=== PATIENT | female | born 1980 | race Two or more races ===

== ENCOUNTER 2021-04-18 18:16 | Inpatient (IN) | payer OTHER ==
[~2021-04-18] VITALS: Ht 154.9 cm; Wt 98.0 kg
[2021-04-18] MEDS ORDERED: IV NS 0.9% 1,000 ML BAG IV ONE (19:00)
[2021-04-18] MEDS ORDERED: INSULIN REGULAR, HUMAN 100 UNIT/ML 10 ML VIAL SQ ONE (19:00)
--- NOTE | 2021-04-18 19:05 | NUR ---
PT ROGELIO FOR MEDICAL CLEARANCE TO BOOK. PT AAOX4 BREATHING EVENLY AND UNLABORED. PT ATTACHED TO MONITOR AND POX. PER PT, SHE HAS RT EYE RETINAL DETACHMENT. PT ATTACHED TO MONITOR AND POX. PT GIVEN BLANKET AND CALL LIGHT WITHIN REACH
[2021-04-18] MEDS ORDERED: INSULIN REGULAR, HUMAN 100 UNIT/ML 10 ML VIAL ONE (19:12)
[2021-04-18 19:13] LABS: BASOPHILS # (AUTO) 0.1 /CMM (0.0-0.2); BASOPHILS % (AUTO) 0.7 % (0.0-2.0); HEMATOCRIT 34 % (33-45); HEMOGLOBIN 11.1 g/dL (11.5-14.8); LYMPHOCYTES # (AUTO) 1.7 /CMM (0.8-4.8); MEAN CORPUSCULAR HGB CONC 33 g/dl (31.0-36.0); MEAN CORPUSCULAR VOLUME 88 fL (82-100); MONOCYTES # (AUTO) 0.3 /CMM (0.1-1.30); MONOCYTES % (AUTO) 3.4 % (2.0-12.0); NEUTROPHILS # (AUTO) 6.9 /CMM (1.8-8.9); NEUTROPHILS % (AUTO) 75.9 % (43.0-81.0); PLATELET COUNT (AUTO) 200 /CMM (150-450); RED BLOOD CELL COUNT(AUTO) 3.87 MIL/uL (4.0-5.2); WHITE BLOOD COUNT (AUTO) 9.1 K/uL (4.3-11.0)
[2021-04-18 19:21] LABS: CALCIUM, SERUM 9.2 mg/dL (8.5-10.1); CREATININE 2.6 mg/dL (0.6-1.3); POTASSIUM 5.7 mmol/L (3.5-5.1)
[2021-04-18] MEDS ORDERED: IV NS 0.9% 1,000 ML IV ONE (19:30)
--- NOTE | 2021-04-18 20:57 | NUR ---
CALLED LAB FOR REPEAT BLOOD DRAW
--- NOTE | 2021-04-18 21:03 | NUR ---
LAB AT BEDSIDE
--- NOTE | 2021-04-18 21:35 | NUR ---
called lab to f/u
[2021-04-18 21:44] LABS: CALCIUM, SERUM 8.3 mg/dL (8.5-10.1); CREATININE 2.4 mg/dL (0.6-1.3); POTASSIUM 5.6 mmol/L (3.5-5.1)
--- NOTE | 2021-04-18 22:11 | NUR ---
COVID SWAB COLLECTED AND SENT
[2021-04-18] MEDS ORDERED: SIMV10TA2 PO (22:21)
[2021-04-18] MEDS ORDERED: ATEN25TA PO (22:22)
[2021-04-18] MEDS ORDERED: ALLO100T PO (22:23)
[2021-04-18] MEDS ORDERED: GABA300C PO (22:24)
[2021-04-18] MEDS ORDERED: CLON0.1T PO (22:26)
[2021-04-18] MEDS ORDERED: OMEP20CA15 PO (22:26)
[2021-04-18] MEDS ORDERED: AMLO-213 PO (22:27)
[2021-04-18] MEDS ORDERED: DULO20CA PO (22:28)
[2021-04-18] MEDS ORDERED: FURO40TA5 PO (22:29)
[2021-04-18] MEDS ORDERED: LISI20TA30 PO (22:30)
[2021-04-18] MEDS ORDERED: HUM10VIA SQ (22:30)
--- NOTE | 2021-04-18 22:33 | NUR ---
PAGED PANEL PER DR'S ORDER
--- NOTE | 2021-04-18 22:44 | NUR ---
DR VENTURA ON THE PHONE WITH DR MCKENZIE
[2021-04-18] MEDS ORDERED: HYDROCODONE/APAP 5/325MG TABLET PO PRN (23:00)
[2021-04-18] MEDS ORDERED: ACETAMINOPHEN 325 MG TABLET PO PRN (23:00)
[2021-04-18] MEDS ORDERED: MAG HYDROX/AL HYDROX/SIMETH 30 ML UDC PO PRN (23:00)
[2021-04-18] MEDS ORDERED: Z GUARD REMEDY 2 OZ OINT TP PRN (23:00)
[2021-04-18] MEDS ORDERED: ZOLPIDEM TARTRATE 5 MG TABLET PO PRN (23:00)
[2021-04-18] MEDS ORDERED: DEXTROSE 50%-WATER 50 ML DISP.SYRIN IV PRN (23:00)
[2021-04-18] MEDS ORDERED: MAGNESIUM HYDROXIDE 30 ML UDC PO PRN (23:00)
[2021-04-18] MEDS ORDERED: INSULIN NPH/REG 70/30 MIX INJ 100 UNIT/ML VIAL SQ SCH (23:00)
[2021-04-18] MEDS ORDERED: ONDANSETRON HCL/PF 4 MG/2 ML VIAL IVP PRN (23:00)
--- NOTE | 2021-04-18 23:02 | NUR ---
TELE BED: 314-7
--- NOTE | 2021-04-18 23:14 | NUR ---
gave report to ELVIRA Leo for brenda
[2021-04-18 23:45] VITALS: BP 156/63
--- NOTE | 2021-04-19 00:45 | NUR ---
HISTORY INSTRUCTORMILL TENDER WARM UP NOTES: ADMIT PATIENT TO FLOOR VIA GURNEY ACCOMPANIED BY POLICE, PLACE IN BED COMFORTABLY, NO COMPLAIN OF PAIN AND DISCOMFORT, REORIENT TO PLACE AND CALL LIGHTS, REMIND TO USE THE CALL LIGHTS WHEN NEEDED ASSISTANCE, SKIN ASSESSMENT DONE, INVENTORY LIST DONE AND SIGN, PATIENT HAS LEFT BREAST MASTECTOMY, PATIENT ON TELE MONITORING WITH READING OF NORMAL SINUS RTHYM HR-82, ON RA NO SOB OBSERVED, WITH RA IV LINE #20 ON 0.9NSS @125ML/HR INFUSING WELL, NPO EXCEPT MEDICATIONS, AMBULATE IWTH SUPERVISION TO RESTROOM, PATIENT KEPT CLEAN AND DRY, WILL CONTINUE TO MONITOR.
[2021-04-19] MEDS: IV NS 0.9% 1,000 ML IV SCH ×3 (00:56→15:10)
[2021-04-19] MEDS: INSULIN REGULAR, HUMAN 100 UNIT/ML 3 ML VIAL SQ PRN ×4 (01:32→17:07)
[2021-04-19 03:47] LABS: BASOPHILS # (AUTO) 0.1 /CMM (0.0-0.2); BASOPHILS % (AUTO) 0.7 % (0.0-2.0); EOSINOPHILS % (AUTO) 1.6 % (0.0-6.0); HEMATOCRIT 31 % (33-45); HEMOGLOBIN 10.4 g/dL (11.5-14.8); LYMPHOCYTES # (AUTO) 2.2 /CMM (0.8-4.8); LYMPHOCYTES % (AUTO) 30.4 % (20.0-44.0); MEAN CORPUSCULAR HGB CONC 33 g/dl (31.0-36.0); MEAN CORPUSCULAR VOLUME 88 fL (82-100); MONOCYTES # (AUTO) 0.3 /CMM (0.1-1.30); MONOCYTES % (AUTO) 4.5 % (2.0-12.0); NEUTROPHILS # (AUTO) 4.5 /CMM (1.8-8.9); NEUTROPHILS % (AUTO) 62.8 % (43.0-81.0); PLATELET COUNT (AUTO) 184 /CMM (150-450); RED BLOOD CELL COUNT(AUTO) 3.58 MIL/uL (4.0-5.2); WHITE BLOOD COUNT (AUTO) 7.2 K/uL (4.3-11.0)
[2021-04-19 04:11] LABS: CHOLESTEROL 196 mg/dL (<200); HDL CHOLESTEROL 40 mg/dL (40-60); LDL 102 mg/dL (0-99); TRIGLYCERIDES 335 mg/dL (30-150)
[2021-04-19 04:16] LABS: CALCIUM, SERUM 8.5 mg/dL (8.5-10.1); CREATININE 2.2 mg/dL (0.6-1.3); MAGNESIUM 2.1 mg/dL (1.8-2.4); PHOSPHORUS 3.8 mg/dL (2.5-4.9); POTASSIUM 4.6 mmol/L (3.5-5.1)
[2021-04-19 05:20] VITALS: BP 144/62
--- NOTE | 2021-04-19 06:30 | NUR ---
VETERINARY MEDICAL OFFICER CLOSING NOTES: PATIENT AWAKE IN BED BED IN LOW POSITION, CALL LIGHTS WITHIN REACH, NO COMPLAIN OF PAIN AND DISCOMFORT ON TELEMONITORING WITH READING OF SINUS RTHYM HR 72, ALL NEEDS MET, KEPT CLEAN AND DRY, WILL CONTINUE NTO MONITOR.
[2021-04-19] MEDS: BLOOD SUGAR DIAGNOSTIC 1 EACH STRIP IN SCH ×4 (06:51→17:06)
--- NOTE | 2021-04-19 07:18 | NUR ---
DISPUTE COORDINATOR OPENING NOTES: RECEIVED PATIENT IN BED AWAKE, POLICE AT BEDSIDE. PATIENT IS A/O X4. PATIENT IS BREATHING EVENLY AND NONLABORED ON ROOM AIR. NO SIGNS OF DISTRESS NOTED. NO COMPLAIN OF PAIN AND DISCOMFORT, PATIENT ON TELE MONITORING WITH READING OF NORMAL SINUS RHYTHM HR-76, WITH RA IV LINE #20 ON NSS @125ML/HR INFUSING. PATIENT IS NPO EXCEPT MEDICATIONS. SAFETY MEASURES ARE IN PLACE, BED LOW LOCKED AND CALL LIGHT WITHIN REACH. WILL CONTINUE TO MONITOR.
[2021-04-19] MEDS ORDERED: PANTOPRAZOLE 40 MG TABLET.DR PO SCH (07:30)
[2021-04-19 08:00] VITALS: BP 147/64
[2021-04-19] MEDS: GABAPENTIN 300 MG CAPSULE PO SCH ×3 (08:06→16:19)
[2021-04-19] MEDS: DULOXETINE HCL 20 MG CAPSULE.DR PO SCH ×2 (08:06→16:19)
[2021-04-19] MEDS ORDERED: CLONIDINE HCL 0.1 MG TABLET PO SCH (09:00)
[2021-04-19] MEDS ORDERED: SIMVASTATIN 10 MG TABLET PO SCH (09:00)
[2021-04-19] MEDS ORDERED: ATENOLOL 25 MG TABLET PO SCH (09:00)
[2021-04-19] MEDS ORDERED: FUROSEMIDE 40 MG TABLET PO SCH (09:00)
[2021-04-19] MEDS ORDERED: AMLODIPINE BESYLATE 10 MG TABLET PO SCH (09:00)
--- NOTE | 2021-04-19 11:39 | NUR ---
RN NOTE PATIENT'S BLOOD SUGAR 212. 4 UNITS GIVEN WILL CONTINUE TO MONITOR
--- NOTE | 2021-04-19 15:12 | NUR ---
RN NOTE OFFICERS STATED PATIENT WAS NO LONGER IN THEIR CARE. PATIENT IS ABLE TO GO HOME WHEN DISCHARGE. WILL NOTIFY MD. WILL CONTINUE TO MONITOR
[2021-04-19 15:27] LABS: BILIRUBIN,URINE NEGATIVE (NEGATIVE); COLOR,URINE YELLOW (YELLOW); LEUKOCYTE ESTERASE ,URINE NEGATIVE (NEGATIVE); NITRITE, URINE NEGATIVE (NEGATIVE); PROTEIN,URINE 100 mg/dl (NEGATIVE); UGLUCOSE 250 MG/DL mg/dL (NEGATIVE); UROBILINOGEN,URINE 0.2 EU/dL (0.2)
--- NOTE | 2021-04-19 15:43 | NUR ---
RN NOTE PATIENT STATED SHE MIGHT NOT BE ABLE TO GO HOME WHEN DISCHARGED. MD NOTIFIED WITH NEW ORDER FOR PERSONAL LINES INSURANCE ADVISOR CONSULT. WILL CONTINUE TO MONITOR
--- NOTE | 2021-04-19 15:51 | NUR ---
Lining Inserter note: nutritional services host consult requested for homelessness resources. Patient is a 40-year old, female. SW met with patient at her bedside in the med-surg unit. Patient was alert and oriented x4. Patient stated that she is currently homeless and is unsure if she will be able to return to her prior arrangement at home. Patient stated, "I have to figure out if I can return to the apartment I was living at before." Patient requested homeless resources at this time. SW provided patient with resources. Patient signed homeless waiver and SW filed waiver in the patient's chart. PLAN: Patient will discharge to the street at this time until she is able to locate other living arrangement. No further SS intervention at this time, however, SW will remain available as needed. RESOURCES: Year-round shelters: [facility] [address] [place], [place] [id number] ; [facility] [address] [place] [address]; [facility] [id number] [address] SPA 4 | [facility] [place] Provider: First [facility] Serve Address: [address], [address] # of Beds: 48 Population Served: [facility] Provider: First to Serve Address: [address] [facility], [address] # of Beds: 73 Population Served: [facility] 6 | [facility] Provider: [facility] Last Address: [address] [facility], [address] # of Beds: 63 Population Served: [facility] 3 | [facility] Provider: [facility] [place] Address: [address] [facility], [address] # of Beds: 75 Population Served: [facility] SPA 8 | [facility] Provider: [facility] [place] Address: [address] [facility], [address] # of Beds: 80 Population Served: [facility] SPA 1 | [facility] Provider: [facility] [place] Address: [address] [place] [address], [address] # of Beds: 85 Population Served: [place] S[place] 2 | [facility] Provider: Holly lundy [facility] Address: Confidential (please call for location) # of Beds: 52 Population Served: [facility] 4 | [facility] Provider: [facility] Address: [address] [facility], [address] # of Beds: 49 Population Served: [facility] Provider: [facility] To Serve Address: [address] [place] [address], [address] # of Beds: 27 Population Served: [facility]: [facility]: [address] [place] ; [facility] [address] [facility] ; [facility] [address] [place] . Food Resources: [facility]- [address] [facility]; Meet Each Need with Dign[facility] ([facility]) [address] [facility]; [facility] [address] [facility]; [facility] [address] [facility]. Mental Health resources provided: [facility] [address] [place] [address] ; [facility] [address] [facility] [address], [place] [address] ; Madiha Lubin [facility] [address] [place] [address] ; [facility] [address] [place], [place] [id number] Healthcare Clinics: [facility] [address] [facility], [address] [place]. [place] ; [facility] [address] [facility] [address] [place] [address]; [facility] [address] [facility]. [place] [id number] [phone] Counseling--Outpatient [facility] [address] [facility], [place] [address] (Specializes in in-depth psychotherapy for emotional distress: anxiety, depression, interpersonal conflicts, life transitions, childhood abuse) PSYCHIATRIC OUTPATIENT SERVICES [facility] Partial Hospitalization and Intensive Outpatient Program (Managed Care and [place] Only) [address]. [facility] [id number] [facility] Partial Hospitalization and Outpatient Program [address] [facility]. [address] [place] [address] [facility] Partial Hospitalization and Outpatient Program [address] [place] [facility] [place] [address] [facility] [facility] [address] [facility]. [address] [place], [place] [address] [facility] Partial Hospitalization and Outpatient Program [address] [address] [place], [place] [phone]
[2021-04-19 16:00] VITALS: BP 143/67
[2021-04-19 16:10] LABS: BACTERIA,URINE Few /HPF (None Seen); SQUAMOUS EPITHELIAL CELL,UR Many /HPF (None Seen); WBC,URINE 0-2 /HPF (0-3)
--- NOTE | 2021-04-19 19:09 | NUR ---
HUMAN RESOURCES FILE CLERK NOTE RECEIVED ORDER FOR DISCHARGE. PATIENT IS A/O X4. PATIENT IS BREATHING EVENLY AND NONLABORED ON ROOM AIR. PATIENT DENIES PAIN OR DISCOMFORT AT THIS TIME. PATIENT ABLE TO AMBULATE. PATIENT'S IV ACCESS AND ID BAND WERE REMOVED. PATIENT WAS GIVEN DISCHARGE INSTRUCTIONS BOTH VERBALLY AND WRITTEN. PATIENT VERBALIZED UNDERSTANDING. PATIENT LEFT IN STABLE CONDITION VIA PRIVATE CAR
== END 2021-04-19 19:10 | disposition home or self-care (01) | DRG 422 ==
LOC: ER 18:16 → MED 23:37 → TELE 04-19 00:10
PROVIDERS: ADMIT Registered Nurse; ATTEND Registered Nurse
DX: E87.5 Hyperkalemia (principal); E86.0 Dehydration; N17.0 Acute kidney failure with tubular necrosis; E10.40 Type 1 diabetes mellitus with diabetic neuropathy, unspecified; E10.22 Type 1 diabetes mellitus with diabetic chronic kidney disease; N18.4 Chronic kidney disease, stage 4 (severe); E10.65 Type 1 diabetes mellitus with hyperglycemia; E66.01 Morbid (severe) obesity due to excess calories; Z59.0 Homelessness; Z79.4 Long term (current) use of insulin; Z79.899 Other long term (current) drug therapy; Z84.1 Family history of disorders of kidney and ureter; I12.9 Hypertensive chronic kidney disease with stage 1 through stage 4 chronic kidney disease, or unspecified chronic kidney disease; Z68.41 Body mass index [BMI] 40.0-44.9, adult; S99.922A Unspecified injury of left foot, initial encounter; X58.XXXA Exposure to other specified factors, initial encounter; Y92.9 Unspecified place or not applicable; Z20.822 Contact with and (suspected) exposure to COVID-19
CPT/HCPCS: 36415; 80048-TC; 80061-TC; 81001; 82962-TC; 83735-TC; 84100-TC; 85025-TC; 87081-TC; C9803; G0378; J1815; J7030